=== PATIENT | male | born 1955 | race Caucasian/White ===

== ENCOUNTER 2023-01-14 09:00 | Outpatient (NON) | payer MEDICARE, SELFPAY | END 2023-01-14 09:01 | disposition home or self-care (01) | LOC: ANHLAB 01-15 12:25 | PROVIDERS: PCP Emergency Medicine; Visit Provider Nurse Practitioner | DX: C44.319 Basal cell carcinoma of skin of other parts of face (principal) | CPT/HCPCS: 88305 ==

== ENCOUNTER 2023-02-15 09:42 | Outpatient (NON) | payer MEDICARE, SELFPAY | END 2023-02-15 09:43 | disposition home or self-care (01) | LOC: ANHLAB 09:44 | PROVIDERS: PCP Emergency Medicine; Visit Provider Nurse Practitioner | DX: C44.319 Basal cell carcinoma of skin of other parts of face (principal) | CPT/HCPCS: 88305; 88331 ==

== ENCOUNTER 2023-03-08 12:06 | Outpatient (NON) | payer MEDICARE, SELFPAY | END 2023-03-08 12:07 | disposition home or self-care (01) | PROVIDERS: PCP Emergency Medicine; Visit Provider Nurse Practitioner | DX: C44.319 Basal cell carcinoma of skin of other parts of face (principal) | CPT/HCPCS: 88305; 88331 ==